=== PATIENT | female | born 1995 | race Caucasian/White ===

== ENCOUNTER 2017-01-29 13:28 | Outpatient (CLI) | payer OTHER ==
[~2017-01-29] VITALS: Ht 160 cm; Wt 72.1 kg
[~2017-01-29 13:28] MED LIST: IBUP-1542 PO
[2017-01-29 13:48] VITALS: BP 115/59; PULSE 72; RESP 20; Ht 160 cm; Wt 72.1 kg
[2017-01-29 14:53] LABS: ADD SCAN DIFF NO
[2017-01-29 14:55] LABS: BASOPHILS % 0.2 % (0.0-2.0); EOSINOPHILS % 0.4 % (0.0-7.0); HEMATOCRIT 32.4 % (37.0-47.0); HEMOGLOBIN 11.1 g/dl (12.0-16.0); LYMPHOCYTES # 1.9 10^3/ul (0.8-2.9); MEAN CORPUSCULAR HEMOGLOBIN 31.5 pg (29.0-33.0); MEAN CORPUSCULAR HGB CONC 34.3 g/dl (32.0-37.0); MEAN PLATELET VOLUME 10.9 fl (7.4-10.4); MONOCYTE # 0.7 10^3/ul (0.3-0.9); MONOCYTES % 7.5 % (0.0-13.0); NEUTROPHIL # 6.6 10^3/ul (1.6-7.5); NEUTROPHILS % 71.1 % (30.0-74.0); PLATELET COUNT 318 10^3/UL (140-415); RED BLOOD COUNT 3.52 10^6/ul (4.20-5.40); RED CELL DISTRIBUTION WIDTH 12.3 % (11.5-14.5); WHITE BLOOD COUNT 9.3 10^3/ul (4.8-10.8)
[2017-01-29 14:55] LABS: ADD UMIC NO; URINE BILIRUBIN (Dip) NEGATIVE (NEGATIVE); URINE BLOOD (Dip) NEGATIVE (NEGATIVE); URINE COLOR LT. YELLOW (YELLOW); URINE GLUCOSE (Dip) NEGATIVE (NEGATIVE); URINE KETONES (Dip) NEGATIVE (NEGATIVE); URINE LEUKOCYTE ESTERASE (Dip) NEGATIVE (NEGATIVE); URINE NITRITE (Dip) NEGATIVE (NEGATIVE); URINE TOTAL PROTEIN (Dip) NEGATIVE (NEGATIVE); URINE UROBILINOGEN (Dip) 0.2 E.U./dL (0.1-1.0)
[2017-01-29] MEDS ORDERED: LACTATED RINGER'S 1,000 ML IV SCH (15:00)
[2017-01-29] MEDS ORDERED: TERBUTALINE 1 MG/ML INJ SC ONE (15:00)
--- NOTE | 2017-01-29 15:06 | RADRPT ---
PROCEDURE: Limited obstetric ultrasound CLINICAL INDICATION: PTL TECHNIQUE: Multiple transverse and longitudinal grayscale images of the pelvis were obtained schoreder sabdominally and endovaginally.. COMPARISON: same day FINDINGS: There is a single live intrauterine gestation in a vertex position with a heart rate of 152 bp m. The placenta is posterior. There is no evidence for placental abruption or a placenta previa. The cervix is closed and measures 4.0 cm in length. RPTAT: AA IMPRESSION: The cervix is closed and measures 4 cm in length. Cephalic presentation. Physician Mavis Date Time Electronically viewed and signed by Physician Mavis on 01/29/2017 15:05 /
--- NOTE | 2017-01-29 18:02 | QN ---
Documentation Comment 21 y/o female at26 weeks C/O abdominal pain X 3 days pain is constant and comes from her back to front and groin worse with sitting and standing No GI or symptoms on EFM minimal U/C seen removed by SQ terbtaline cervical length :4.0 cm all other labs normal A: R lig pain will follow as outpatient NICOLÁS GANDHI MD January 29, 2017 18:02
--- NOTE | 2017-01-29 18:42 | CONS ---
Date/Time of Note Date/Time of Note DATE: 01/29/17 TIME: 18:35 Consultation Date/Type/Reason Admit Date/Time January 29, 2070 OB triage consult Reason for Consultation This patient is a 21 years old 2 para 1 whose EDC is 05/07/2017 which makes her 26 weeks now She came to triage area complaining of low back pain and lower abdominal pain for 3 days She described the pain as constant and mostly involving her lower and mid back . On general examination her blood pressure was 115/57, pulse rate 72, respiration 18, temperature 98.4. On physical examination she is a well-developed well-nourished mid term patient. Her complaint mostly is pain of the low back, no costovertebral angle tenderness Also she has a slight lower abdominal pain. heart tone is okay we do not feel any contractions on examination On lab studies her urinalysis is basically normal ,no evidence of infection, on blood work WBC is 9.3 her CBC shows a mild anemia hemoglobin 11.1 hematocrit 32.2 the rest of blood tests of normal We performed an ultrasound result is a single live intrauterine gestation in vertex position heart tone is 152/min placenta is posterior There is no evidence of placental abruption or previa cervical length was 4 cm Laboratory Tests Test 01/29/17 13:30 01/29/17 14:00 Urine Color LT. YELLOW Urine Clarity CLEAR Urine pH 6.5 Urine Specific [place] 1.010 Urine Ketones NEGATIVE Urine Nitrite NEGATIVE Urine Bilirubin NEGATIVE Urine Urobilinogen 0.2 E.U./dL Urine Leukocyte Esterase NEGATIVE Urine Hemoglobin NEGATIVE Urine Glucose NEGATIVE% Urine Total Protein NEGATIVE White Blood Count 9.310^3/ul Red Blood Count 3.5210^6/ul Hemoglobin 11.1g/dl Hematocrit 32.4% Mean Corpuscular Volume 92.0fl Mean Corpuscular Hemoglobin 31.5pg Mean Corpuscular Hemoglobin Concent 34.3g/dl Red Cell Distribution Width 12.3% Platelet Count 82558^3/UL Mean Platelet Volume 10.9fl Neutrophils % 71.1% Lymphocytes % 20.0% Monocytes % 7.5% Eosinophils % 0.4% Basophils % 0.2% Nucleated Red Blood Cells % 0.0/100WBC Neutrophils # 6.610^3/ul Lymphocytes # 1.910^3/ul Monocytes # 0.710^3/ul Eosinophils # 0.010^3/ul Basophils # 0.010^3/ul Nucleated Red Blood Cells # 0.010^3/ul Current Medications Medications (Trade) Dose Ordered Sig/Alysia Route PRN Reason Start Time Stop Time Status Last Admin Dose Admin Lactated Ringer's (Lr) 1,000 ml @ 125 mls/hr Q8H IV 01/29/17 15:00 01/29/17 15:13 125 MLS/HR Terbutaline Sulfate (Brethine) 0.25 mg ONCE ONCE SC 01/29/17 15:00 01/29/17 15:01 DC 01/29/17 15:13 0.25 MG Constitutional: No chills, No diaphoresis, No disoriented, No febrile, No improved, No no complaints, No other, No poor po, No requiring IVF, No requiring O2 Eyes: No discharge, No no complaints, No other, No pain, No redness, No visual change ENT: No bleeding, No congestion, No discharge, No dysphagia, No no complaints, No other, No pain, No sore throat Respiratory: No cough, No no complaints, No other, No pain, No pleuritic pain, No shortness of breath, No sputum, No wheezing Cardiovascular: No chest pain, No edema, No lightheadedness, No no complaints, No orthopenea, No other, No palpitations, No paroxysmal nocturnal dyspnea Gastrointestinal: No blood, No constipation, No decreased appetite, No diarrhea , No flatus, No nausea, No no complaints, No other, No pain, No passing stool, No vomiting Genitourinary: other (No dysuria), No bleeding, No discharge, No dysuria, No flank pain, No hematuria, No no complaints Musculoskeletal: other (Low back pain no CVA tenderness), No back pain, No bone/joint pain, No neck pain, No no complaints, No restricted range of motion, No swelling Skin: No bruising, No erythema, No laceration, No no complaints, No other, No pruritis, No rash, No skin lesions Neurologic: No confusion, No dizziness, No focal-weakness, No headache, No no complaints, No other, No seizure, No syncope Endocrine: No dry skin, No no complaints, No other, No polydypsia, No polyuria , No temp intolerance Additional Comments With this positive finding patient was reassured and was advised to use the maternity binder to help her low back pain Social History Smoking Status: Never smoker Exam/Review of Systems Vital Signs Vitals Vital Signs Date Time Temp Pulse Resp B/P Pulse Ox O2 Delivery O2 Flow Rate FiO2 01/29/17 13:48 98.4 72 20 115/59 Room Air Results Result Diagram: 01/29/17 1400 Results 24 hrs Laboratory Tests Test 01/29/17 13:30 01/29/17 14:00 Urine Color LT. YELLOW Urine Clarity CLEAR Urine pH 6.5 Urine Specific [place] 1.010 Urine Ketones NEGATIVE Urine Nitrite NEGATIVE Urine Bilirubin NEGATIVE Urine Urobilinogen 0.2 E.U./dL Urine Leukocyte Esterase NEGATIVE Urine Hemoglobin NEGATIVE Urine Glucose NEGATIVE Urine Total Protein NEGATIVE White Blood Count 9.3 # Red Blood Count 3.52 L Hemoglobin 11.1 #L Hematocrit 32.4 #L Mean Corpuscular Volume 92.0 Mean Corpuscular Hemoglobin 31.5 Mean Corpuscular Hemoglobin Concent 34.3 Red Cell Distribution Width 12.3 # Platelet Count 318 Mean Platelet Volume 10.9 H Neutrophils % 71.1 Lymphocytes % 20.0 Monocytes % 7.5 Eosinophils % 0.4 Basophils % 0.2 Nucleated Red Blood Cells % 0.0 Neutrophils # 6.6 Lymphocytes # 1.9 Monocytes # 0.7 Eosinophils # 0.0 Basophils # 0.0 Nucleated Red Blood Cells # 0.0 Medications Medications Current Medications Lactated Ringer's (Lr) 1,000 ml @ 125 mls/hr Q8H IV Last administered on t 15:13; Admin Dose 125 MLS/HR; Start 01/29/17 at 15:00 MATIAS WYNNE MD January 29, 2017 18:42
--- NOTE | 2017-01-29 19:02 | TRIAGE ---
OB Triage Datetime Report Generated by CPN: 01/29/2017 19:02 Datetime: 01/29/2017 17:30 Labor Evaluation Frequency: 0 Monitor Mode: External Heart Rate FHR Baseline Rate: 150 Monitor Mode: External US FHR Baseline Changes: No Baseline Change Variability: Moderate 6-25 bpm Accelerations: 15X15 Decelerations: None Category: Category I Pain Assessment Pain Scale: 7 Pain Presence: Constant Pain Type: Ache Pain Location: Back Pain Goal: 0 Pain Relief Measures: Comfort Measures Datetime: 01/29/2017 17:00 Labor Evaluation Frequency: X2 Monitor Mode: External Duration (sec)2399: 40 Quality: Mild Pattern: Normal: <= 5 Contractions in 10 Minutes Resting Tone [place]: Relaxed Heart Rate FHR Baseline Rate: 150 Monitor Mode: External US FHR Baseline Changes: No Baseline Change Variability: Moderate 6-25 bpm Accelerations: 15X15 Decelerations: None Category: Category I Datetime: 01/29/2017 16:30 Labor Evaluation Frequency: X1 Monitor Mode: External Duration (sec)2399: 30 Quality: Mild Pattern: Normal: <= 5 Contractions in 10 Minutes Resting Tone [place]: Relaxed Heart Rate FHR Baseline Rate: 140 Monitor Mode: External US FHR Baseline Changes: No Baseline Change Variability: Moderate 6-25 bpm Accelerations: 15X15 Decelerations: None Category: Category I Pain Assessment Pain Scale: 7 Pain Presence: Constant Pain Type: Ache Pain Location: Back Pain Goal: 0 Datetime: 01/29/2017 16:00 Labor Evaluation Frequency: X2 Monitor Mode: External Duration (sec)2399: 20 Quality: Mild Pattern: Normal: <= 5 Contractions in 10 Minutes Resting Tone [place]: Relaxed Heart Rate FHR Baseline Rate: 140 Monitor Mode: External US FHR Baseline Changes: No Baseline Change Variability: Moderate 6-25 bpm Accelerations: 15X15 Decelerations: None Category: Category I Pain Assessment Pain Scale: 7 Pain Presence: Constant Pain Type: Ache Pain Location: Back Pain Goal: 0 Pain Relief Measures: Comfort Measures Datetime: 01/29/2017 15:30 Labor Evaluation Frequency: X3 Monitor Mode: External Duration (sec)2399: 20-30 Quality: Mild Pattern: Normal: <= 5 Contractions in 10 Minutes Resting Tone [place]: Relaxed Heart Rate FHR Baseline Rate: 140 Monitor Mode: External US FHR Baseline Changes: No Baseline Change Variability: Moderate 6-25 bpm Accelerations: 15X15 Decelerations: None Category: Category I Pain Assessment Pain Scale: 7 Pain Presence: Constant Pain Type: Ache Pain Location: Back Pain Goal: 0 Datetime: 01/29/2017 15:00 Labor Evaluation Frequency: X1 Monitor Mode: External Duration (sec)2399: 40 Quality: Mild Pattern: Normal: <= 5 Contractions in 10 Minutes Resting Tone [place]: Relaxed Heart Rate FHR Baseline Rate: 140 Monitor Mode: External US FHR Baseline Changes: No Baseline Change Variability: Moderate 6-25 bpm Accelerations: 15X15 Decelerations: None Category: Category I Pain Assessment Pain Scale: 8 Pain Presence: Constant Pain Type: Ache Pain Location: Abdomen; Back; Right Groin; Left Groin Pain Goal: 0 Datetime: 01/29/2017 14:30 Labor Evaluation Frequency: X4 Monitor Mode: External Duration (sec)2399: 20-40 Quality: Mild Pattern: Normal: <= 5 Contractions in 10 Minutes Resting Tone [place]: Relaxed Heart Rate FHR Baseline Rate: 140 Monitor Mode: External US FHR Baseline Changes: No Baseline Change Variability: Moderate 6-25 bpm Accelerations: 15X15 Decelerations: None Category: Category I Pain Assessment Pain Scale: 8 Pain Presence: Constant Pain Type: Ache Pain Location: Abdomen; Back; Right Groin; Left Groin Pain Goal: 0 Datetime: 01/29/2017 13:41 EGA: 26.0 Datetime: 01/29/2017 13:40 Stage of : OB Triage Assessment Type: Admission Assessment EGA: 26.0 Maternal Assessment Level of Consciousness: Fully Conscious DTR's/Clonus: DTRs 2+; No Clonus Headache: Denies Blurred Vision: No Respiratory Effort: Unlabored; Regular Rhythm; Equal Expansion Breath Sounds, Left: Clear and Equal Breath Sounds, Right: Clear and Equal Nausea/Vomiting: Denies RUQ Epigastric Pain: Denies Lower Extremities Edema: None Upper Extremities Edema: None Facial Edema: None Temperature Route: Oral Fall Risk Assessment History of Falling: (0) No Secondary Diagnosis: (0) No Ambulatory Aid: (0) Bedrest/Nurse Assist IV Therapy: (0) No Gait: (0) Normal/Bedrest/Immobile Mental Status: (0) Oriented to Own Ability Fall Score: 0 Fall Risk Score Definition: No Risk: No action required Pain Assessment Pain Scale: 8 Pain Presence: Constant Pain Type: Cramping; Sharp Pain Location: Abdomen; Back; Right Hip; Left Hip; Right Leg; Left Leg Pain Goal: 4 Pain Relief Measures: Comfort Measures Datetime: 01/29/2017 13:38 Time of Arrival: 01/29/2017 13:00 Arrived By: Ambulatory Chief Complaint: BACK PAIN, ABDOMINAL PAIN Movement: Present Contractions: Denies/Absent Rupture of Membranes: Denies Vaginal Discharge: Denies Recent Sexual Intercouse: Denies Abdominal Trauma: Not Applicable Patient Complaints: Back Pain; Vomiting Time Provider Notified: 01/29/2017 14:37 Provider Notified: DR. MEADOWS Initial Plan: EFM, UA, CBC, CERVICAL LENGTH, IV HYDRATION, TERB Datetime: 01/29/2017 13:36 Stage of : OB Triage Monitor Mode: External Monitor Mode: External US Pain Assessment Pain Scale: 8 Pain Presence: Constant Pain Type: Ache Pain Location: Abdomen; Back; Right Groin; Left Groin Pain Goal: 0 Pain Relief Measures: Comfort Measures
== END 2017-01-29 18:10 | disposition home or self-care (01) ==
LOC: OBT 13:28 → L-D 13:29 → OBT 18:10
PROVIDERS: ATTEND Obstetrics & Gynecology
DX: O26.892 Other specified pregnancy related conditions, second trimester (principal); R10.30 Lower abdominal pain, unspecified; M54.5 Low back pain; Z3A.26 26 weeks gestation of pregnancy
CPT/HCPCS: 36415; 76817; 81003; 85025; 96360; 96361; 96372; J3105; J7120; Z7500; G0463

== ENCOUNTER 2017-02-27 16:13 | Outpatient (CLI) | payer OTHER ==
--- NOTE | 2017-02-27 20:01 | TRIAGE ---
OB Triage Datetime Report Generated by CPN: 02/27/2017 20:01 Datetime: 02/27/2017 17:00 Labor Evaluation Monitor Mode: External Resting Tone [place]: Relaxed Heart Rate FHR Baseline Rate: 150 Monitor Mode: External US FHR Baseline Changes: No Baseline Change Variability: Moderate 6-25 bpm Accelerations: 15X15 Decelerations: Variable Category: Category I Comments: Appropriate for gestational age Pain Assessment Pain Scale: 2 Pain Presence: Intermittent Pain Type: Pressure Pain Location: Abdomen Pain Goal: 0 Pain Relief Measures: Comfort Measures Pain Assessment Comments: Pt states she has only felt mild pain and informed RN her contraction pa ins are about every 2 hours. Datetime: 02/27/2017 16:50 Assessment Type: Triage Maternal Assessment Level of Consciousness: Fully Conscious DTR's/Clonus: DTRs 2+; No Clonus Headache: Denies Blurred Vision: No Respiratory Effort: Unlabored; Regular Rhythm; Equal Expansion Breath Sounds, Left: Clear and Equal Breath Sounds, Right: Clear and Equal Nausea/Vomiting: Denies RUQ Epigastric Pain: Denies Lower Extremities Edema: None Degree: None Upper Extremities Edema: None Degree: None Facial Edema: None Fall Risk Assessment History of Falling: (0) No Secondary Diagnosis: (0) No Ambulatory Aid: (0) Bedrest/Nurse Assist IV Therapy: (0) No Gait: (0) Normal/Bedrest/Immobile Mental Status: (0) Oriented to Own Ability Fall Score: 0 Fall Risk Score Definition: No Risk: No action required Datetime: 02/27/2017 16:20 Time of Arrival: 02/27/2017 16:10 EGA: 30.1 Arrived By: Ambulatory Arrived From: Home Chief Complaint: Spotting, back pain Movement: Present Contractions: Occasional Rupture of Membranes: Denies Vaginal Bleeding: Normal Show; Small Vaginal Discharge: Present Recent Sexual Intercouse: Denies Abdominal Trauma: Not Applicable Patient Complaints: Back Pain; Other Time Provider Notified: 02/27/2017 16:55 Provider Notified: Jayro Initial Plan: NST, OB cervical length, cervical exam, UA, CBC Datetime: 01/29/2017 13:41 EGA: 26.0 Datetime: 01/29/2017 13:40 EGA: 26.0 Fall Score: 0 Fall Risk Score Definition: No Risk: No action required
== END 2017-02-27 17:30 | disposition left against medical advice (07) ==
LOC: OBT 16:13 → L-D 16:13 → OBT 17:30
PROVIDERS: ATTEND Obstetrics & Gynecology
DX: O60.03 Preterm labor without delivery, third trimester (principal); Z3A.30 30 weeks gestation of pregnancy
CPT/HCPCS: 59025; Z7500; G0463

== ENCOUNTER 2017-04-27 11:12 | Inpatient (IN) | END 2017-04-29 17:12 | disposition home or self-care (01) | DRG 775 | DX: O71.89 Other specified obstetric trauma (principal); Z37.0 Single live birth; Z3A.39 39 weeks gestation of pregnancy ==